=== PATIENT | male | born 1955 | race Caucasian/White ===

== ENCOUNTER 2018-12-04 09:46 | Day surgery (SDC) | payer MEDICARE, OTHER ==
[~2018-12-04] VITALS: Ht 180.3 cm; Wt 138.3 kg
[~2018-12-04 09:46] MED LIST: ADVIL200 MG PO; TYLENOL 500MG TAB PO
[2018-12-04 12:36] VITALS: BP 126/90
== END 2018-12-04 12:46 | disposition home or self-care (01) ==
LOC: ENDO 09:46
PROVIDERS: ATTEND Surgery
PROC: 0DBL8ZX Excision of Transverse Colon, Via Natural or Artificial Opening Endoscopic, Diagnostic (ICD-10-PCS; principal; 2018-12-04)
PROC: 3E0H8GC Introduction of Other Therapeutic Substance into Lower GI, Via Natural or Artificial Opening Endoscopic (ICD-10-PCS; 2018-12-04)
DX: K63.5 Polyp of colon (principal); K64.4 Residual hemorrhoidal skin tags; F17.210 Nicotine dependence, cigarettes, uncomplicated

== ENCOUNTER 2024-08-01 14:55 | Emergency (ER) | payer MEDICARE, OTHER ==
[~2024-08-01] VITALS: Ht 180.3 cm; Wt 130.0 kg
[2024-08-01 15:01] VITALS: BP 146/68
[2024-08-01] MEDS ORDERED: NEOMYCIN-BACITRACIN-POLYMYXIN 0.5 GM/PAK PAK TOP STA (15:04)
[2024-08-01] MEDS ORDERED: Diph, Acellular Pertussis, Tet 0.5 ML/VIAL (Tdap) SDV IM STA (15:04)
[2024-08-01] MEDS ORDERED: POVIDONE IODINE 4 OZ BTL TOP ONE (15:15)
[2024-08-01] MEDS ORDERED: POVIDONE IODINE 0.5 OZ/BTL TOP ONE (15:25)
[2024-08-01 15:31] VITALS: BP 147/93
[2024-08-01] MEDS ORDERED: AMOX/K CLAV875 M1 PO (15:38)
[2024-08-01 15:46] VITALS: BP 131/77
[2024-08-01 16:01] VITALS: BP 127/82
[2024-08-01 16:16] VITALS: BP 140/74
[2024-08-01] MEDS ORDERED: TRAMADOL HYDROC50 M1 PO (16:25)
[2024-08-01 16:32] VITALS: BP 140/74
== END 2024-08-01 16:45 | disposition home or self-care (01) ==
LOC: ED 14:55
PROC: 0HQGXZZ Repair Left Hand Skin, External Approach (ICD-10-PCS; principal; 2024-08-01)
DX: S61.452A Open bite of left hand, initial encounter (principal); S61.257A Open bite of left little finger without damage to nail, initial encounter; S61.252A Open bite of right middle finger without damage to nail, initial encounter; I10 Essential (primary) hypertension; F17.200 Nicotine dependence, unspecified, uncomplicated; W54.0XXA Bitten by dog, initial encounter; Y92.410 Unspecified street and highway as the place of occurrence of the external cause
CPT/HCPCS: 90715